=== PATIENT | male | born 1935 | race Hispanic/Latino ===

== ENCOUNTER 2019-05-04 07:13 | Observation (INO) | payer MEDICARE ==
[2019-05-01 14:20] VITALS: BP 179/78
[2019-05-01 15:04] LABS: BASOPHILS % (AUTO) 0.6 % (0.0-5.0); EOSINOPHILS % (AUTO) 2.1 % (0.0-8.0); LYMPHOCYTES % (AUTO) 25.9 % (21.0-51.0); MEAN CORPUSCULAR HEMOGLOBIN 31.9 pg (27.0-33.0); MEAN CORPUSCULAR HGB CONC 33.6 g/dL (32.0-36.0); MONOCYTES % (AUTO) 9.2 % (3.0-13.0); NEUTROPHILS % (AUTO) 62.2 % (40.0-77.0); NUCLEATED RED BLOOD CELLS 0.1 % (0.0-0.19); PLATELET COUNT (AUTO) 385 K/uL (130-400); RED BLOOD CELL COUNT(AUTO) 4.21 MIL/uL (4.50-6.20); RED CELL DISTRIBUTION WIDTH 13.5 % (11.0-15.5); WHITE BLOOD COUNT (AUTO) 7.7 K/uL (4.8-10.8)
[2019-05-01 15:15] LABS: POTASSIUM 3.7 mmol/L (3.5-5.1)
[2019-05-01 15:16] LABS: PROTHROMBIN TIME 10.5 SEC (9.6-11.6)
--- NOTE | 2019-05-01 15:39 | NUR ---
URINALYSIS/UA C/S NOTIFIED RANDI AT DR. ALEMAN OFFICE OF NOT ABLE TO COLLECT ENOUGH URINE FOR URINALYSIS ONLY FOR CULTURE. SAID IT WAS FINE AND SHE WOULD NOTIFY DR. ARTEAGA.
[2019-05-01 16:00] LABS: CREATININE 1.4 mg/dL (0.5-1.5)
--- NOTE | 2019-05-03 21:38 | NUR ---
Reported results to Charity from doctor Good office in regards to pt urine cx being positive and sensitiviy results send to md office. Per Charity , Doctor Alvarez placed pt on antibiotic cipro due to urine infection. Called office twice to see if any new orders, but per Charity she would call back if any orders. Doctor Bueno notified of ekg results, no new order okay to proceed.
[~2019-05-04] VITALS: Ht 172.7 cm; Wt 77.8 kg
[2019-05-04] VITALS (20 sets, daily range): BP systolic 121–189; BP diastolic 60–94
[~2019-05-04 07:13] MED LIST: ALBUTER IH; CIPR500S5 PO; FINA5TAB41 PO; POTA20TA82 PO; TAMS-1 PO
[2019-05-04] MEDS: CEFTRIAXONE SODIUM 1 GM IVP SCH ×2 (07:15→08:40)
[2019-05-04] MEDS ORDERED: LACTATED RINGERS 1000ML 1,000 ML IV ONE (07:25)
[2019-05-04] MEDS: GENTAMICIN SULFATE 390 MG in SODIUM CHLORIDE 0.9% 100 ML IV SCH ×2 (07:48→19:44)
[2019-05-04] MEDS ORDERED: MIDAZOLAM HCL 1 MG/ML 2ML VIAL ONE ×2 (08:43→12:29)
[2019-05-04] MEDS ORDERED: ONDANSETRON HCL 4 MG/2 ML VIAL ONE ×2 (08:43→12:29)
[2019-05-04] MEDS ORDERED: FENTANYL CITRATE PF 50 MCG/1 ML 2ML VIAL ONE ×2 (08:43→12:29)
[2019-05-04] MEDS ORDERED: LIDOCAINE PF 2% 5ML ABBOJECT ONE ×2 (08:43→12:29)
[2019-05-04] MEDS ORDERED: DEXAMETHASONE SOD PHOSPHATE 10MG/ML 1ML VIAL ONE ×2 (08:43→12:29)
[2019-05-04] MEDS ORDERED: PROPOFOL 10 MG/ML 20ML VIAL IV ONE ×2 (08:43→12:29)
[2019-05-04] MEDS ORDERED: ROCURONIUM 10MG/1ML SYR 10 MG/ML ML ONE ×2 (08:44→12:31)
[2019-05-04] MEDS ORDERED: GLYCOPYRROLATE 1 MG/5 ML SYRINGE ONE ×2 (10:56→13:02)
[2019-05-04] MEDS ORDERED: NEOSTIGMINE 5MG/5ML SYR IV ONE ×2 (10:56→13:03)
[2019-05-04 12:07] LABS: CREATININE 1.3 mg/dL (0.5-1.5); POTASSIUM 3.8 mmol/L (3.5-5.1)
[2019-05-04] MEDS ORDERED: ONDANSETRON HCL 4 MG/2 ML VIAL IVP PRN (13:15)
[2019-05-04] MEDS: HYDROCODONE/ACETAMINOPHEN 5/325 MG TAB PO PRN (18:44)
--- NOTE | 2019-05-04 20:00 | NUR ---
CBI CBI IN PROGRESS VIA [address] WAY ALGERIAN 20 GAUGE CATHETER, PATENT DRAINING LIGHT PINKISH OUTPUT, NO CLOTS SEEN , MULTIPLE FAMILY AT BEDSIDE, TEACH PLAN OF CARE AND EXPECTED OUTCOME
[2019-05-04] MEDS: BACITRACIN 28.4 GM OINT TP SCH (21:22)
[2019-05-05] VITALS: BP 139/82
[2019-05-05 04:00] VITALS: BP 169/86
--- NOTE | 2019-05-05 06:30 | NUR ---
f/c f/c clamped as ordered, output light pinkish no clots seen , will observe for giselle bleeding
[2019-05-05] MEDS: HYDROCODONE/ACETAMINOPHEN 5/325 MG TAB PO PRN (06:43)
[2019-05-05 08:00] VITALS: BP 154/83
[2019-05-05] MEDS ORDERED: CEFTRIAXONE SODIUM 1 GM IVP SCH (08:00)
[2019-05-05] MEDS ORDERED: FINASTERIDE 5 MG TABLET PO SCH (09:00)
[2019-05-05] MEDS ORDERED: POTASSIUM CHLORIDE 20 MEQ ERTAB PO SCH (09:00)
[2019-05-05] MEDS ORDERED: LEVOFLOXACIN 500 MG TABLET PO SCH (09:00)
--- NOTE | 2019-05-05 10:30 | NUR ---
Pt ambulating in halls as instructed, accompanied by his daughter,tolerating well. Denying pain, continues with very little blood in the urine.
[2019-05-05 11:00] VITALS: BP 167/97
[2019-05-05] MEDS ORDERED: TAMSULOSIN HCL 0.4 MG CAP.ER.24H PO SCH (12:00)
[2019-05-05] MEDS ORDERED: ALBUTEROL SULFATE 0.083% 2.5 MG/3 ML INH IH SCH (12:00)
[2019-05-05] MEDS: BACITRACIN 28.4 GM OINT TP SCH (12:27)
--- NOTE | 2019-05-05 12:30 | NUR ---
Pt asking for an enema because he said he hasn't had a BM since Wednesday, I explained that I need to call the doctor because we don't give them without an order, he said he does not want to wait that long, I offered a prune juice and he drank it, I told him that I will work on his discharge paper work.
--- NOTE | 2019-05-05 13:00 | NUR ---
Discharge instruction given to patient and his daughter on follow up appointment and the application of Bacitracin ointment on the meatus twice a day. Taught daughter Haney care and the switching of leg bag to the big drainage bag and she said that she is already familiar with the Haney care because her father had gone home with the haney catheter before.
== END 2019-05-05 13:20 | disposition home or self-care (01) ==
LOC: DAH 07:13 → DAHIP 07:14 → DAH 07:14 → 4BH 12:33
PROVIDERS: ADMIT Urology; ATTEND Urology
DX: N40.1 Benign prostatic hyperplasia with lower urinary tract symptoms (principal); R32 Unspecified urinary incontinence; R31.0 Gross hematuria; R33.8 Other retention of urine; N32.3 Diverticulum of bladder; Z87.440 Personal history of urinary (tract) infections; Z79.899 Other long term (current) drug therapy
CPT/HCPCS: 36415 ×2; 52648; 71045; 80048 ×2; 85025; 85610; 87077 ×2; 87088; 87186 ×2; 93005; 94640; 94664; 96365; 96375; A4215; A4221; A4222; A4223; A4346; A4354; A4358; A4600; A4930; A5120; A6260; G0378 ×23; J0696 ×2; J1100 ×2; J1580; J2001 ×2; J2250 ×2; J2405 ×2; J2704 ×2; J2710 ×2; J3010 ×2; J3490 ×2; J7030; J7120 ×2

== ENCOUNTER 2019-05-06 04:33 | Observation (INO) | payer MEDICARE ==
[2019-05-06] MEDS ORDERED: SODIUM CHLORIDE 0.9% 500ML 500 ML IV ONE (05:37)
[2019-05-06 05:49] LABS: BASOPHILS % (AUTO) 0.4 % (0.0-5.0); EOSINOPHILS % (AUTO) 0.1 % (0.0-8.0); HEMATOCRIT 37.2 % (42-54); LYMPHOCYTES % (AUTO) 6.8 % (21.0-51.0); MEAN CORPUSCULAR HEMOGLOBIN 31.3 pg (27.0-33.0); MEAN CORPUSCULAR HGB CONC 33.2 g/dL (32.0-36.0); MEAN CORPUSCULAR VOLUME 94.1 fL (79-99); MONOCYTES % (AUTO) 6.8 % (3.0-13.0); NEUTROPHILS % (AUTO) 85.9 % (40.0-77.0); NUCLEATED RED BLOOD CELLS 0.1 % (0.0-0.19); PLATELET COUNT (AUTO) 313 K/uL (130-400); RED BLOOD CELL COUNT(AUTO) 3.95 MIL/uL (4.50-6.20); RED CELL DISTRIBUTION WIDTH 13.9 % (11.0-15.5); WHITE BLOOD COUNT (AUTO) 16.3 K/uL (4.8-10.8)
[2019-05-06 06:23] LABS: CREATININE 1.5 mg/dL (0.5-1.5); POTASSIUM 3.3 mmol/L (3.5-5.1)
[2019-05-06 07:11] LABS: APPEARANCE,URINE CLOUDY (CLEAR); BILIRUBIN,URINE NEGATIVE (NEGATIVE); COLOR,URINE RED (YELLOW); GLUCOSE, URINE (UA) NEGATIVE (NEGATIVE); KETONES,URINE NEGATIVE (NEGATIVE); LEUKOCYTE ESTERASE ,URINE MODERATE (NEGATIVE); NITRATE,URINE NEGATIVE (NEGATIVE); OCCULT BLOOD,URINE LARGE (NEGATIVE); PROTEIN,URINE 100 mg/dL (NEGATIVE); UROBILINOGEN,URINE 0.2 mg/dL (0.2-1.0)
[2019-05-06 07:37] LABS: BACTERIA,URINE Few /HPF (None Seen); RBC,URINE 51-100 /HPF (0-1); SQUAMOUS EPITHELIAL CELL,UR Rare /HPF (0-2)
[2019-05-06] MEDS ORDERED: SODIUM CHLORIDE 0.9% 1000ML 1,000 ML IV ONE ×2 (07:51→09:45)
[2019-05-06] MEDS ORDERED: CEFTRIAXONE SODIUM 1 GM ONE (07:51)
[2019-05-06] MEDS ORDERED: SODIUM CHLORIDE 0.9% 100 ML IV ONE (07:51)
[2019-05-06] MEDS ORDERED: ACETAMINOPHEN 325 MG TAB ONE (07:59)
[2019-05-06] MEDS ORDERED: SODIUM CHLORIDE 0.9% 1000ML 1,000 ML IV SCH (08:05)
[2019-05-06] MEDS ORDERED: ACETAMINOPHEN 325 MG TAB PO PRN ×2 (08:15)
[2019-05-06] MEDS ORDERED: POTASSIUM CHLORIDE 20 MEQ ERTAB PO PRN (08:15)
[2019-05-06] MEDS ORDERED: ONDANSETRON HCL 4 MG/2 ML VIAL IV PRN (08:15)
[2019-05-06] MEDS ORDERED: CEFTRIAXONE SODIUM 2 GM VIAL IVP SCH (08:15)
[2019-05-06] MEDS ORDERED: POTASSIUM CHLORIDE 20MEQ/100ML 100 ML IV PRN (08:15)
[2019-05-06] MEDS ORDERED: POTASSIUM CHLORIDE 10% ELIXIR 20 MEQ/15 ML UDCUP PO PRN (08:15)
[2019-05-06] MEDS ORDERED: LIDOCAINE HCL-MPF 1% 2ML VIAL IV PRN (08:15)
[2019-05-06] MEDS ORDERED: ENOXAPARIN SODIUM 30 MG/0.3 ML SQ SCH (09:00)
[2019-05-06] MEDS ORDERED: FAMOTIDINE 20MG TAB 20 MG TAB PO SCH (09:00)
[2019-05-06] MEDS ORDERED: POTASSIUM CHLORIDE 10% ELIXIR 20 MEQ/15 ML UDCUP ONE ×3 (09:44→13:54)
[2019-05-06] MEDS ORDERED: FAMOTIDINE 20MG TAB 20 MG TAB ONE (09:44)
== END 2019-05-06 15:42 | disposition home or self-care (01) ==
LOC: EDH 04:33 → EDHIP 08:09
PROVIDERS: ADMIT Family Medicine; ATTEND Family Medicine
DX: T83.091A Other mechanical complication of indwelling urethral catheter, initial encounter (principal); E87.6 Hypokalemia; I10 Essential (primary) hypertension; J44.9 Chronic obstructive pulmonary disease, unspecified; D72.829 Elevated white blood cell count, unspecified; N40.1 Benign prostatic hyperplasia with lower urinary tract symptoms; Z87.440 Personal history of urinary (tract) infections; Z87.891 Personal history of nicotine dependence; Z90.79 Acquired absence of other genital organ(s); Z79.899 Other long term (current) drug therapy; Y73.8 Miscellaneous gastroenterology and urology devices associated with adverse incidents, not elsewhere classified
CPT/HCPCS: 36415; 71045; 80048; 81001; 83605; 85025; 87040; 87088; 99284; G0378 ×8; J0696; J7030 ×2; J7040

== ENCOUNTER 2022-01-14 17:58 | Emergency (ER) | payer OTHER, MEDICARE ==
[~2022-01-14] VITALS: Ht 170.2 cm; Wt 78.9 kg
[~2022-01-14 17:58] MED LIST changes: +POTA-202 PO; -POTA20TA82 PO
[2022-01-14 18:43] LABS: BASOPHILS % (AUTO) 0.3 % (0.0-5.0); HEMATOCRIT 43.6 % (42-54); LYMPHOCYTES % (AUTO) 8.9 % (21.0-51.0); MEAN CORPUSCULAR HEMOGLOBIN 31.5 pg (27.0-33.0); MEAN CORPUSCULAR HGB CONC 34.4 g/dL (32.0-36.0); MEAN CORPUSCULAR VOLUME 91.6 fL (79-99); MONOCYTES % (AUTO) 7.5 % (3.0-13.0); NEUTROPHILS % (AUTO) 82.7 % (40.0-77.0); PLATELET COUNT (AUTO) 257 K/uL (130-400); RED BLOOD CELL COUNT(AUTO) 4.76 MIL/uL (4.50-6.20); RED CELL DISTRIBUTION WIDTH 12.2 % (11.0-15.5); WHITE BLOOD COUNT (AUTO) 6.8 K/uL (4.8-10.8)
[2022-01-14 18:56] LABS: INR 1.01 (0.85-1.15)
[2022-01-14 18:57] LABS: PARTIAL THROMBOPLASTIN TIME 27.1 SEC (26.3-35.5)
[2022-01-14 18:58] LABS: CREATININE 1.4 mg/dL (0.5-1.5); POTASSIUM 3.1 mmol/L (3.5-5.1)
[2022-01-14 19:03] LABS: ALBUMIN 3.7 g/dL (3.5-5.0); BILIRUBIN,TOTAL 0.6 mg/dL (0.2-1.0); TOTAL PROTEIN, SERUM 7.2 g/dL (6.0-8.3)
[2022-01-14] MEDS ORDERED: ACETAMINOPHEN 500 MG TABLET ONE (19:06)
[2022-01-14 19:22] LABS: APPEARANCE,URINE Clear (CLEAR); BILIRUBIN,URINE Negative (NEGATIVE); COLOR,URINE Dark Yellow (YELLOW); GLUCOSE, URINE (UA) Negative (NEGATIVE); KETONES,URINE Negative (NEGATIVE); LEUKOCYTE ESTERASE ,URINE Negative (NEGATIVE); NITRATE,URINE Negative (NEGATIVE); OCCULT BLOOD,URINE Negative (NEGATIVE); PH,URINE 6.5 (5.0-8.0); PROTEIN,URINE Negative (NEGATIVE)
[2022-01-14] MEDS ORDERED: 0.9% NACL 500ML IV.SOLN 500 ML IV ONE (20:00)
[2022-01-14 20:53] VITALS: BP 149/83
[2022-01-19] MEDS ORDERED: AMLO-258 PO (19:38)
[2022-01-19] MEDS ORDERED: LATA7.5D OP (19:38)
[2022-01-19] MEDS ORDERED: HYDR-3421 PO (19:38)
[2022-01-19] MEDS ORDERED: VITAD50000 PO (19:38)
[2022-01-19] MEDS ORDERED: DONE10TA43 PO (19:38)
[2022-01-19] MEDS ORDERED: PANT40TA54 PO (19:38)
== END 2022-01-14 22:19 | disposition home or self-care (01) ==
LOC: EDH 17:58
DX: B34.9 Viral infection, unspecified (principal); Z20.822 Contact with and (suspected) exposure to COVID-19; F03.90 Unspecified dementia, unspecified severity, without behavioral disturbance, psychotic disturbance, mood disturbance, and anxiety; F41.9 Anxiety disorder, unspecified; I10 Essential (primary) hypertension; J45.909 Unspecified asthma, uncomplicated; Z90.79 Acquired absence of other genital organ(s)
CPT/HCPCS: 36415; 71045; 80053; 81003; 82550; 83605; 84484; 85025; 85610; 85730; 87040 ×2; 87077; 87088; 87186; 87635; 87804 ×2; 93005; 99285; C9803

== ENCOUNTER 2024-01-14 09:53 | Emergency (ER) | payer OTHER, MEDICARE ==
[~2024-01-14] VITALS: Ht 175.3 cm; Wt 59.0 kg
[~2024-01-14 09:53] MED LIST changes: -ALBUTER IH; -CIPR500S5 PO; +DONE10TA43 PO; -FINA5TAB41 PO; +LATA7.5D OP; -POTA-202 PO; -TAMS-1 PO
[2024-01-14 10:10] VITALS: O2SAT 100
[2024-01-14 10:59] LABS: BASOPHILS # (AUTO) 0.04 K/uL (0.00-0.20); BASOPHILS % (AUTO) 0.7 % (0.0-5.0); EOSINOPHILS # (AUTO) 0.09 K/uL (0.00-0.70); EOSINOPHILS % (AUTO) 1.5 % (0.0-8.0); HEMATOCRIT 41.9 % (42-54); IMMATURE GRANULOCYTE ABSOLUTE 0.02 K/uL (0-1); LYMPHOCYTES # (AUTO) 1.9 K/uL (1.0-4.8); MEAN CORPUSCULAR HEMOGLOBIN 32.4 pg (27.0-33.0); MEAN CORPUSCULAR HGB CONC 34.1 g/dL (32.0-36.0); MONOCYTES # (AUTO) 0.4 K/uL (0.1-1.0); MONOCYTES % (AUTO) 6.9 % (3.0-13.0); NEUTROPHILS # (AUTO) 3.6 K/uL (1.8-7.7); NEUTROPHILS % (AUTO) 59.6 % (40.0-77.0); PLATELET COUNT (AUTO) 225 K/uL (130-400); RED BLOOD CELL COUNT(AUTO) 4.41 MIL/uL (4.50-6.20); RED CELL DISTRIBUTION WIDTH 12.6 % (11.0-15.5); WHITE BLOOD COUNT (AUTO) 6.1 K/uL (4.8-10.8)
[2024-01-14 11:14] LABS: APPEARANCE,URINE CLOUDY (CLEAR); BILIRUBIN,URINE NEGATIVE (NEGATIVE); COLOR,URINE YELLOW (YELLOW); GLUCOSE, URINE (UA) NEGATIVE (NEGATIVE); KETONES,URINE NEGATIVE (NEGATIVE); LEUKOCYTE ESTERASE ,URINE 75 Leu/uL (NEGATIVE); NITRATE,URINE NEGATIVE (NEGATIVE); OCCULT BLOOD,URINE NEGATIVE (NEGATIVE); PH,URINE 6.5 (5.0-8.0); PROTEIN,URINE NEGATIVE (NEGATIVE); UROBILINOGEN,URINE 0.2 mg/dL (0.2-1.0)
[2024-01-14 11:15] LABS: CARBON DIOXIDE 31 mmol/L (21-32); CHLORIDE 107 mmol/L (101-111); CREATININE 1.1 mg/dL (0.5-1.3); GLOMERULAR FILTR. RATE CALC 64 mL/min (>90); GLUCOSE,RANDOM 95 mg/dL (70-105); POTASSIUM 3.5 mmol/L (3.5-5.1); SODIUM SERUM 145 mmol/L (136-145); UREA NITROGEN, BLOOD 14 mg/dL (7-18)
[2024-01-14 11:18] VITALS: BP 156/74; PULSE 60; RESP 17
[2024-01-14 11:21] LABS: ALANINE AMINOTRANSFERASE 16 U/L (12-78); ALBUMIN 3.6 g/dL (3.5-5.0); AMMONIA < 10 umol/L (11-32); ASPARTATE AMINOTRANSFERASE 12 U/L (10-37); BILIRUBIN,TOTAL 0.7 mg/dL (0.2-1.0)
[2024-01-14 11:27] LABS: ADD UA MICROSCOPIC YES
[2024-01-14 11:31] LABS: BACTERIA,URINE RARE /HPF (None Seen); MUCUS,URINE RARE LPF (None Seen); RBC,URINE 0-1 /HPF (0-1); SQUAMOUS EPITHELIAL CELL,UR RARE /HPF (0-2)
== END 2024-01-14 11:56 | disposition home or self-care (01) ==
LOC: EDH 09:53
DX: R53.1 Weakness (principal); I10 Essential (primary) hypertension; F03.90 Unspecified dementia, unspecified severity, without behavioral disturbance, psychotic disturbance, mood disturbance, and anxiety; J45.909 Unspecified asthma, uncomplicated
CPT/HCPCS: 36415; 70450; 71045; 80053; 81001; 82140; 84484; 85025; 87077; 87088; 87186; 93005

== ENCOUNTER 2024-02-15 11:10 | Emergency (ER) | payer OTHER, MEDICARE ==
[~2024-02-15] VITALS: Ht 180.3 cm; Wt 61.7 kg
[2024-02-15 11:11] VITALS: BP 100/56; PULSE 59; RESP 14
[2024-02-15] MEDS: ACETAMINOPHEN 500 MG TABLET PO ONE (13:15)
== END 2024-02-15 14:20 | disposition home or self-care (01) ==
LOC: EDH 11:10
DX: S20.229A Contusion of unspecified back wall of thorax, initial encounter (principal); S30.0XXA Contusion of lower back and pelvis, initial encounter; F03.90 Unspecified dementia, unspecified severity, without behavioral disturbance, psychotic disturbance, mood disturbance, and anxiety; J45.909 Unspecified asthma, uncomplicated; I10 Essential (primary) hypertension; Z79.899 Other long term (current) drug therapy; W01.0XXA Fall on same level from slipping, tripping and stumbling without subsequent striking against object, initial encounter; Y93.89 Activity, other specified; Y92.89 Other specified places as the place of occurrence of the external cause; Y99.8 Other external cause status
CPT/HCPCS: 72072; 72100